=== PATIENT | female | born 1970 | race Caucasian/White ===

== ENCOUNTER → 2016-08-16 | Outpatient (CLI) | payer MEDICAID | LOC: FIMAGING 14:22 | PROVIDERS: ATTEND Family Medicine | DX: J45.909 Unspecified asthma, uncomplicated (principal) ==

== ENCOUNTER → 2016-08-22 | Outpatient (CLI) | payer MEDICAID | LOC: FIMAGING 06:46 | PROVIDERS: ATTEND Family Medicine Sports Medicine | DX: M17.12 Unilateral primary osteoarthritis, left knee (principal) ==

== ENCOUNTER → 2018-06-28 | Outpatient (CLI) | payer MEDICAID | LOC: FIMAGING 15:09 | PROVIDERS: ATTEND Internal Medicine Pulmonary Disease | DX: R06.00 Dyspnea, unspecified (principal) ==

== ENCOUNTER → 2018-06-29 | Outpatient (CLI) | payer MEDICAID | LOC: GIMAGING 09:39 → EDSTATUS 16:12 | PROVIDERS: ATTEND Family Medicine | DX: M79.674 Pain in right toe(s) (principal) | CPT/HCPCS: 73660-PO; 83525-90 ==